=== PATIENT | male | born 1945 | race Caucasian/White ===

== ENCOUNTER 2022-06-14 07:52 | Outpatient (CLI) | payer MEDICARE, OTHER | END 2022-06-14 23:59 | disposition home or self-care (01) | LOC: LAB 07:52 | PROVIDERS: ATTEND Surgery | DX: Z01.812 Encounter for preprocedural laboratory examination (principal); Z20.822 Contact with and (suspected) exposure to COVID-19 ==

== ENCOUNTER 2022-06-17 07:33 | Day surgery (SDC) | payer MEDICARE, OTHER ==
[2022-06-17 08:17] LABS: *BILIRUBIN,URIN NEGATIVE (NEGATIVE); *CLARITY,URINE CLEAR (CLEAR); *COLOR,URINE YELLOW (YELLOW); *KETONES,URINE NEGATIVE (NEGATIVE); *UROBILINOGEN,URINE 0.2 E.U./dl (NORMAL); HEMATOCRIT 40.7 % (36.7-47.1); LEUKOCYTE ESTERASE ,URINE NEGATIVE (NEGATIVE); MEAN CORPUSCULAR HEMOGLOBIN 32.5 uug (23.8-33.4); NITRITE, URINE NEGATIVE (NEGATIVE); PH,URINE 7.5 (5.0-8.0); PLATELET COUNT (AUTO) 248 K/uL (152-348); UGLUCOSE NEGATIVE (NEGATIVE)
[2022-06-17 08:20] LABS: *BLOOD, URINE TRACE (NEGATIVE)
[2022-06-17 08:35] LABS: CREATININE 0.8 mg/dL (0.6-1.3); POTASSIUM 4.9 mmol/L (3.5-5.1)
[2022-06-17 08:47] LABS: BILIRUBIN,TOTAL 0.5 mg/dL (0.2-1.0); TOTAL PROTEIN, SERUM 7.4 g/dL (6.4-8.2)
[2022-06-17] MEDS ORDERED: PROPOFOL 200 MG/20 ML BOTTLE ONE (10:32)
[2022-06-17] MEDS ORDERED: LIDOCAINE-MPF 2% 5 ML VIAL ONE (10:32)
[2022-06-17 10:43] LABS: BACTERIA,URINE NONE SEEN /HPF (NONE SEEN); RBC,URINE 0-3 /HPF (0-3); SQUAMOUS EPITHELIAL CELL,UR NONE SEEN /HPF (NONE SEEN); WBC,URINE 0-3 /HPF (0-3)
== END 2022-06-17 11:09 | disposition home or self-care (01) ==
LOC: DS 07:33
PROVIDERS: ATTEND Surgery
DX: R19.4 Change in bowel habit (principal); K44.9 Diaphragmatic hernia without obstruction or gangrene; K21.00 Gastro-esophageal reflux disease with esophagitis, without bleeding; K62.1 Rectal polyp; K64.8 Other hemorrhoids; K63.89 Other specified diseases of intestine; K31.89 Other diseases of stomach and duodenum; K29.50 Unspecified chronic gastritis without bleeding; I10 Essential (primary) hypertension; J44.9 Chronic obstructive pulmonary disease, unspecified; E11.9 Type 2 diabetes mellitus without complications; Z79.84 Long term (current) use of oral hypoglycemic drugs; Z79.899 Other long term (current) drug therapy; Z98.890 Other specified postprocedural states
CPT/HCPCS: 45380; 43239; 71045; 80053; 81001; 82962; 85025; 85730; 36415; 93005; J3490; J7040; A4663